=== PATIENT | male | born 1990 | race Caucasian/White ===

== ENCOUNTER 2024-05-09 23:02 | Emergency (ER) | payer SELFPAY ==
[~2024-05-09] VITALS: Ht 172.7 cm; Wt 93.0 kg
[2024-05-09 23:02] VITALS: BP 153/85; PULSE 97; RESP 16; TEMP 98.3; O2SAT 97
[2024-05-09] MEDS ORDERED: TETANUS, DIPHTHERIA, PERTUSSIS VAC/PF 0.5ML (>10YR OLD) IM ONE (23:15)
[2024-05-09] MEDS ORDERED: LIDOCAINE HCL/PF 1% 10 MG/ML 5ML VIAL INFIL ONE (23:15)
[2024-05-10] MEDS: BACITRACIN ZINC OINT UDPKT TOP ONE
[2024-05-10] MEDS: ACETAMINOPHEN 325MG TABLET PO ONE
== END 2024-05-10 | disposition home or self-care (01) ==
LOC: ER 23:48
DX: S51.812A Laceration without foreign body of left forearm, initial encounter (principal); X58.XXXA Exposure to other specified factors, initial encounter; Y93.89 Activity, other specified; Y92.89 Other specified places as the place of occurrence of the external cause; Y99.8 Other external cause status
CPT/HCPCS: 12002; 99282

== ENCOUNTER 2024-12-14 16:42 | Emergency (ER) | payer MEDICAID ==
[~2024-12-14] VITALS: Ht 175.3 cm; Wt 88.0 kg
[2024-12-14 16:48] VITALS: RESP 15; TEMP 37.1; O2SAT 100
[2024-12-14 17:21] LABS: BASOPHILS % 0.6 % (0.0-2.0); EOSINOPHILS % 0.9 % (0.0-5.0); HEMATOCRIT. 50.2 % (42.0-52.0); HEMOGLOBIN. 17.1 g/dL (14.0-18.0); LYMPHOCYTES % 38.5 % (20.0-50.0); MEAN PLATELET VOLUME 8.6 fl (7.4-10.4); MONOCYTES % 11.2 % (2.0-8.0); NEUTROPHILS % 48.8 % (40.0-76.0); PLATELET 227 x1000/uL (130-400); RED BLOOD CELL COUNT 5.60 mill/uL (4.7-6.1); RED CELL DISTRIBUTION WIDTH 13.9 % (11.6-14.6)
[2024-12-14 17:32] LABS: CREATININE 1.3 mg/dL (0.6-1.3); UREA NITROGEN BLOOD 21 mg/dL (9-23)
[2024-12-14 19:17] LABS: CLARITY URINE CLEAR (CLEAR); COLOR URINE YELLOW (YELLOW); GLUCOSE URINE NEGATIVE (NEGATIVE); PH URINE 5.5 (4.5-8.0); PROTEIN URINE NEGATIVE (NEGATIVE); SPECIFIC GRAVITY URINE 1.016 (1.005-1.030)
[2024-12-14 19:18] LABS: KETONES URINE NEGATIVE (NEGATIVE); LEUKOCYTE ESTERASE URINE NEGATIVE (NEGATIVE); NITRITE URINE NEGATIVE (NEGATIVE); OCCULT BLOOD URINE NEGATIVE (NEGATIVE); UROBILINOGEN URINE 0.2 E.U./dL (0.2-1.0)
[2024-12-14 19:33] LABS: *AMPHETAMINES SCREEN URINE NEGATIVE (NEGATIVE); *BARBITURATES SCREEN URINE NEGATIVE (NEGATIVE); *BENZODIAZEPINES SCREEN URINE NEGATIVE (NEGATIVE); *COCAINE SCREEN URINE NEGATIVE (NEGATIVE)
[2024-12-14 19:34] LABS: CANNABINOID URINE SCREEN NEGATIVE (NEGATIVE); ECSTASY MDMA SCREEN URINE NEGATIVE (NEGATIVE); METHADONE URINE SCREEN NEGATIVE (NEGATIVE); OPIATES URINE SCREEN NEGATIVE (NEGATIVE); PHENCYCLIDINE URINE SCREEN NEGATIVE (NEGATIVE)
[2024-12-14 20:20] LABS: ETHANOL BLOOD < 10 mg/dL (<10); TROPONIN I HIGH SENSITIVITY < 4 ng/L (3.0-53)
[2024-12-14 20:21] LABS: ASPARTATE AMINOTRANSFERASE 40 IU/L (<34); BILIRUBIN DIRECT < 0.1 mg/dL (<=3.0); PHOSPHORUS 3.9 mg/dL (2.5-4.9)
[2024-12-14 20:22] LABS: BILIRUBIN TOTAL 0.3 mg/dL (0.1-1.0); PROTEIN TOTAL 7.1 g/dL (6.0-8.3)
[2024-12-14] MEDS ORDERED: MECL-299 MT (20:29)
[2024-12-14] MEDS: ONDANSETRON 4MG ODT PO ONE (20:38)
[2024-12-14] MEDS: MECLIZINE 25MG TABLET PO ONE (20:38)
[2024-12-14 20:43] VITALS: BP 127/64; PULSE 60; O2SAT 98
== END 2024-12-14 20:45 | disposition home or self-care (01) ==
LOC: ER 16:42
DX: R42 Dizziness and giddiness (principal); R11.0 Nausea; Z79.899 Other long term (current) drug therapy
CPT/HCPCS: 80076; 80305; 80048; 81003; 80320; 83880; 83690; 83735; 84100; 85025; 84484; 36415; 71045; 70450; 93005; 99285; J8597; Q0162; G0480